=== PATIENT | female | born 1965 | race American Indian/Alaskan Native ===

== ENCOUNTER 2017-01-16 10:03 | Outpatient (CLI) | payer BC ==
--- NOTE | 2017-01-16 15:42 | Mammography Report ---
BILATERAL DIGITAL SCREENING MAMMOGRAM with CAD : 01/16/17 10:03:00 CLINICAL: Routine screening.Previous left benign biopsy. COMPARISON:08/10/15 and 12/23/13 FINDINGS: The breasts are extremely dense, which limits the sensitivity of mammography.Stable left upper circumscribed lobular shaped mass with a biopsy clip. No new mass, architectural distortion or suspicious calcifications. IMPRESSION: No mammographic evidence of malignancy. BI-RADS CATEGORY: 2 -- Benign RECOMMENDATION: Routine mammographic screening in one year. COMMENT: Patient follow-up letters are generated by our [employer] application.
== END 2017-01-16 10:04 | disposition home or self-care (01) ==
LOC: SPVWC 10:03
PROVIDERS: ATTEND Obstetrics & Gynecology
DX: Z12.31 Encounter for screening mammogram for malignant neoplasm of breast (principal)
CPT/HCPCS: 77067; G0202